=== PATIENT | male | born 1970 | race Caucasian/White ===

== ENCOUNTER → 2023-10-06 08:02 | Outpatient (REF) | payer OTHER, SELFPAY | LOC: DHSLP 08:02 | PROVIDERS: ATTENDING PHYSICIAN Internal Medicine Cardiovascular Disease; FAMILY PHYSICIAN Internal Medicine | DX: G47.19 Other hypersomnia (principal); R06.83 Snoring | CPT/HCPCS: 95800 ==

== ENCOUNTER → 2024-04-14 08:49 | Outpatient (REF) | payer OTHER, SELFPAY | LOC: PAVMRI 08:49 | PROVIDERS: ATTENDING PHYSICIAN Orthopaedic Surgery; FAMILY PHYSICIAN Internal Medicine | DX: S43.432D Superior glenoid labrum lesion of left shoulder, subsequent encounter (principal); M75.22 Bicipital tendinitis, left shoulder | CPT/HCPCS: 73221 ==

== ENCOUNTER → 2024-04-24 08:26 | Outpatient (REF) | payer OTHER, SELFPAY | LOC: RCS 08:26 | PROVIDERS: ATTENDING PHYSICIAN Internal Medicine Cardiovascular Disease; FAMILY PHYSICIAN Internal Medicine | DX: I25.10 Atherosclerotic heart disease of native coronary artery without angina pectoris (principal); I49.3 Ventricular premature depolarization | CPT/HCPCS: 93306 ==

== ENCOUNTER 2024-08-09 06:17 | Day surgery (SDC) | payer OTHER, SELFPAY | END 2024-08-09 13:43 | disposition home or self-care (01) | LOC: GI 06:17 | PROVIDERS: ATTENDING PHYSICIAN Internal Medicine Gastroenterology | DX: R13.10 Dysphagia, unspecified (principal); K22.89 Other specified disease of esophagus; K29.50 Unspecified chronic gastritis without bleeding; K20.0 Eosinophilic esophagitis | CPT/HCPCS: 43239; 88305; 88342 ==